=== PATIENT | female | born 1985 | race Caucasian/White ===

== ENCOUNTER → 2024-01-05 14:57 | Outpatient (REF) | payer OTHER, SELFPAY | LOC: RAD 14:57 | PROVIDERS: ATTENDING PHYSICIAN Internal Medicine Gastroenterology; FAMILY PHYSICIAN Family Medicine | DX: K59.09 Other constipation (principal) | CPT/HCPCS: 74018 ==

== ENCOUNTER → 2024-02-28 06:33 | Day surgery (SDC) | payer OTHER, SELFPAY | LOC: GI 06:33 | PROVIDERS: ATTENDING PHYSICIAN Internal Medicine Gastroenterology | DX: K62.5 Hemorrhage of anus and rectum (principal); K59.00 Constipation, unspecified; Z98.0 Intestinal bypass and anastomosis status | CPT/HCPCS: 45331; 88305 ==

== ENCOUNTER → 2024-07-20 07:18 | Outpatient (REF) | payer OTHER, SELFPAY | LOC: RAD 07:18 | PROVIDERS: ATTENDING PHYSICIAN Internal Medicine Gastroenterology; FAMILY PHYSICIAN Family Medicine | DX: K59.09 Other constipation (principal) | CPT/HCPCS: 74270 ==